=== PATIENT | male | born 1970 | race Caucasian/White ===

== ENCOUNTER 2021-12-25 13:55 | Inpatient (IN) | payer MEDICAID ==
[~2021-12-25] VITALS: Ht 180.3 cm; Wt 103.9 kg
[~2021-12-25 13:55] MED LIST: DILT180C67 PO; HYDR-3919 PO; LIP20 PO; LOP600 PO
[2021-12-25 15:30] VITALS: BP_SYST 133
[2021-12-25] MEDS ORDERED: HYDROcodone/ACETAMIN 10-325 MG TAB PO ONE (15:30)
[2021-12-25] MEDS ORDERED: IBUPROFEN 600 MG TABLET PO ONE (16:00)
[2021-12-25 17:17] LABS: BASOPHILS % (AUTO) 0.4 % (0.0-2.0); EOSINOPHILS % (AUTO) 0.6 % (0.0-4.0); HEMATOCRIT 30.9 % (36-54); HEMOGLOBIN 10.8 g/dL (14.0-18.0); LYMPHOCYTES # (AUTO) 1.2 K/uL (1.0-5.5); LYMPHOCYTES % (AUTO) 20.3 % (20.5-51.5); MEAN CORPUSCULAR HEMOGLOBIN 27 pg (27-31); MEAN CORPUSCULAR HGB CONC 35 % (32-36); MEAN CORPUSCULAR VOLUME 78 fL (79.0-98.0); MONOCYTES # (AUTO) 0.8 K/uL (0.0-1.0); MONOCYTES % (AUTO) 13.4 % (1.7-9.3); NEUTROPHILS # (AUTO) 3.8 K/uL (1.8-7.7); NEUTROPHILS % (AUTO) 65.3 % (40.0-70.0); PLATELET COUNT (AUTO) 198 K/uL (130-430); RED BLOOD CELL COUNT(AUTO) 3.95 MIL/uL (4.2-6.2); RED CELL DISTRIBUTION WIDTH 12.9 % (9.0-15.0); WHITE BLOOD COUNT (AUTO) 5.9 K/uL (4.8-10.8)
[2021-12-25 17:54] LABS: POTASSIUM 4.2 mmol/L (3.5-5.1)
[2021-12-25 17:55] LABS: CALCIUM 8.8 mg/dL (8.4-11.0); CREATININE 1.41 mg/dL (0.55-1.30); TOTAL BILIRUBIN 0.7 mg/dL (0.0-1.0)
[2021-12-25] MEDS ORDERED: VANCOMYCIN HCL 1,000 MG in NS 250 ML IV ONE (19:15)
[2021-12-25] MEDS ORDERED: NACL 0.9% 1,000 ML IV ONE ×2 (21:00→23:45)
[2021-12-25] MEDS ORDERED: KETOROLAC TROMETHAMINE 15 MG VIAL IVP ONE (21:15)
[2021-12-25] MEDS ORDERED: VANCOMYCIN HCL 1000 MG/VIAL IV ONE (21:22)
[2021-12-25] MEDS ORDERED: GABA800T PO (23:18)
[2021-12-25] MEDS ORDERED: LIP10 PO (23:18)
[2021-12-25] MEDS ORDERED: VALS80TA2 PO (23:18)
[2021-12-25] MEDS ORDERED: HYDR-3610 PO (23:18)
[2021-12-25] MEDS ORDERED: METF-518 PO (23:18)
[2021-12-25] MEDS ORDERED: INSULIN REGULAR, HUMAN 100 UNITS/ML, 10 ML VIAL (humuLIN R) SUBCUT PRN (23:45)
[2021-12-25] MEDS: GABAPENTIN 300 MG CAPSULE PO SCH (23:45)
[2021-12-26 01:20] VITALS: BP_SYST 111
[2021-12-26 01:32] VITALS: BP_SYST 111
[2021-12-26] MEDS: HYDROcodone/ACETAMIN 5-325 MG TAB (NORCO/ VICODIN) PO PRN ×3 (02:49→20:27)
[2021-12-26 07:55] VITALS: BP_SYST 124
[2021-12-26] MEDS ORDERED: DOCUSATE SODIUM 100 MG CAPSULE PO PRN (09:15)
[2021-12-26] MEDS ORDERED: MAGNESIUM SULFATE 50 ML IV PRN (09:15)
[2021-12-26] MEDS ORDERED: LORazepam 2 MG/ML VIAL IVP PRN (09:15)
[2021-12-26] MEDS ORDERED: ACETAMINOPHEN 325 MG TABLET PO PRN ×2 (09:15→11:45)
[2021-12-26] MEDS ORDERED: NALOXONE HCL 0.4 MG/ML AMP (NARCAN) IVP PRN ×2 (09:15)
[2021-12-26] MEDS ORDERED: ONDANSETRON HCL 4 MG/2 ML VIAL IVP PRN (09:15)
[2021-12-26] MEDS ORDERED: DEXTROSE 50% JECT 50 ML DISP.SYRIN IVP PRN (09:15)
[2021-12-26] MEDS ORDERED: MUPIROCIN 2% TOPICAL OINTMENT 22 GM NS PRN (09:15)
[2021-12-26] MEDS ORDERED: ZOLPIDEM TARTRATE 5 MG TABLET PO PRN (09:15)
[2021-12-26] MEDS ORDERED: MORPHINE 2 MG/ML INJ. SYRINGE IVP PRN (09:15)
[2021-12-26] MEDS ORDERED: POTASSIUM CHLORIDE 20 MEQ TAB.PRT.SR PO PRN (09:15)
[2021-12-26] MEDS: GABAPENTIN 300 MG CAPSULE PO SCH ×3 (09:43→20:27)
[2021-12-26] MEDS: VANCOMYCIN HCL 1,250 MG in NS 250 ML IV SCH ×2 (09:44→20:30)
[2021-12-26 12:00] VITALS: BP_SYST 128
[2021-12-26] MEDS: INSULIN LISPRO SLIDING SCALE 100 UNITS/ML VIAL (humaLOG) SUBCUT PRN ×2 (12:00→21:45)
[2021-12-26] MEDS: NACL 0.9% 1,000 ML IV SCH (12:02)
[2021-12-26] MEDS: MORPHINE 2 MG/ML INJ. SYRINGE IVP PRN ×3 (12:52→21:44)
[2021-12-26 14:24] LABS: BARBITURATE, URINE NEGATIVE (NEG <=200); BENZODIAZEPINE, URINE NEGATIVE (NEG <=150); CANNABINOID, URINE NEGATIVE (NEG <=50); COCAINE, URINE NEGATIVE (NEG <=150); METHAMPHETAMINES SCREEN,URINE NEGATIVE (NEG <=500); OPIATE, URINE POSITIVE (NEG <=100); PHENCYCLIDINE SCREEN,URINE NEGATIVE (NEG <=25); UR TRICYCLIC ANTIDEPRESSANTS NEGATIVE (NEG <=300); URINE AMPHETAMINE NEGATIVE (NEG <=500); URINE METHADONE NEGATIVE (NEG <=200); URINE OXYCODONE SCREEN NEGATIVE (NEG <=100); URINE PROPOXYPHENE SCREEN NEGATIVE (NEG <=300)
[2021-12-26] MEDS ORDERED: GABAPENTIN 400 MG CAPSULE PO SCH (15:00)
[2021-12-26 16:00] VITALS: BP_SYST 121
[2021-12-26 20:10] VITALS: BP_SYST 119
[2021-12-26] MEDS: HEPARIN SODIUM,PORCINE 5,000 UNITS/ML VIAL SUBCUT SCH (20:29)
[2021-12-26] MEDS ORDERED: DILTIAZEM HCL 180 MG CAP.SR.24H PO SCH (21:00)
[2021-12-26] MEDS ORDERED: GEMFIBROZIL 600 MG TABLET (LOPID) PO SCH (21:00)
[2021-12-27] MEDS: MORPHINE 2 MG/ML INJ. SYRINGE IVP PRN ×5 (02:07→20:41)
[2021-12-27] MEDS: NACL 0.9% 1,000 ML IV SCH ×3 (02:08→15:40)
[2021-12-27 05:44] VITALS: BP_SYST 117
[2021-12-27] MEDS: INSULIN LISPRO SLIDING SCALE 100 UNITS/ML VIAL (humaLOG) SUBCUT PRN ×2 (06:07→12:04)
[2021-12-27 07:33] LABS: CALCIUM 8.2 mg/dL (8.4-11.0); CREATININE 0.76 mg/dL (0.55-1.30); POTASSIUM 4.2 mmol/L (3.5-5.1)
[2021-12-27 07:50] VITALS: BP_SYST 125
[2021-12-27 07:53] LABS: BASOPHILS % (AUTO) 0.3 % (0.0-2.0); EOSINOPHILS # (AUTO) 0.1 K/uL (0.0-0.4); EOSINOPHILS % (AUTO) 2.7 % (0.0-4.0); HEMATOCRIT 26.6 % (36-54); HEMOGLOBIN 9.5 g/dL (14.0-18.0); LYMPHOCYTES # (AUTO) 1.2 K/uL (1.0-5.5); LYMPHOCYTES % (AUTO) 30.2 % (20.5-51.5); MEAN CORPUSCULAR HEMOGLOBIN 28 pg (27-31); MEAN CORPUSCULAR HGB CONC 36 % (32-36); MEAN CORPUSCULAR VOLUME 77 fL (79.0-98.0); MONOCYTES # (AUTO) 0.6 K/uL (0.0-1.0); MONOCYTES % (AUTO) 13.7 % (1.7-9.3); NEUTROPHILS # (AUTO) 2.2 K/uL (1.8-7.7); NEUTROPHILS % (AUTO) 53.1 % (40.0-70.0); PLATELET COUNT (AUTO) 157 K/uL (130-430); RED BLOOD CELL COUNT(AUTO) 3.44 MIL/uL (4.2-6.2); RED CELL DISTRIBUTION WIDTH 12.7 % (9.0-15.0)
[2021-12-27 08:15] LABS: WHITE BLOOD COUNT (AUTO) 4.1 K/uL (4.8-10.8)
[2021-12-27] MEDS: GABAPENTIN 300 MG CAPSULE PO SCH ×3 (08:54→20:41)
[2021-12-27] MEDS: ATORVASTATIN 20 MG TABLET PO SCH (08:54)
[2021-12-27] MEDS: CEFEPIME 2 GM in D5W 100 ML IV SCH ×2 (08:54→20:40)
[2021-12-27] MEDS: VANCOMYCIN HCL 1,250 MG in NS 250 ML IV SCH ×2 (08:55→21:59)
[2021-12-27] MEDS: HEPARIN SODIUM,PORCINE 5,000 UNITS/ML VIAL SUBCUT SCH ×2 (08:57→21:00)
[2021-12-27 12:05] VITALS: BP_SYST 122
[2021-12-27] MEDS: HYDROcodone/ACETAMIN 5-325 MG TAB (NORCO/ VICODIN) PO PRN ×2 (15:39→23:42)
[2021-12-27 16:05] VITALS: BP_SYST 127
[2021-12-28] MEDS: NACL 0.9% 1,000 ML IV SCH (01:15)
[2021-12-28 06:37] LABS: BASOPHILS % (AUTO) 0.5 % (0.0-2.0); EOSINOPHILS # (AUTO) 0.1 K/uL (0.0-0.4); EOSINOPHILS % (AUTO) 3.2 % (0.0-4.0); HEMATOCRIT 27.5 % (36-54); HEMOGLOBIN 9.9 g/dL (14.0-18.0); LYMPHOCYTES # (AUTO) 1.1 K/uL (1.0-5.5); LYMPHOCYTES % (AUTO) 26.3 % (20.5-51.5); MEAN CORPUSCULAR HEMOGLOBIN 27 pg (27-31); MEAN CORPUSCULAR HGB CONC 36 % (32-36); MEAN CORPUSCULAR VOLUME 76 fL (79.0-98.0); MONOCYTES # (AUTO) 0.4 K/uL (0.0-1.0); MONOCYTES % (AUTO) 10.4 % (1.7-9.3); NEUTROPHILS # (AUTO) 2.5 K/uL (1.8-7.7); NEUTROPHILS % (AUTO) 59.6 % (40.0-70.0); PLATELET COUNT (AUTO) 171 K/uL (130-430); RED BLOOD CELL COUNT(AUTO) 3.61 MIL/uL (4.2-6.2); RED CELL DISTRIBUTION WIDTH 12.8 % (9.0-15.0); WHITE BLOOD COUNT (AUTO) 4.2 K/uL (4.8-10.8)
[2021-12-28 08:00] VITALS: BP_SYST 148
[2021-12-28] MEDS ORDERED: GABAPENTIN 300 MG CAPSULE PO SCH ×2 (08:00→09:00)
[2021-12-28 08:17] LABS: CALCIUM 8.4 mg/dL (8.4-11.0); CREATININE 0.83 mg/dL (0.55-1.30); POTASSIUM 4.3 mmol/L (3.5-5.1)
[2021-12-28] MEDS: HEPARIN SODIUM,PORCINE 5,000 UNITS/ML VIAL SUBCUT SCH ×2 (08:28→21:00)
[2021-12-28] MEDS: GABAPENTIN 300 MG CAPSULE PO SCH ×3 (08:29→22:00)
[2021-12-28] MEDS: ATORVASTATIN 20 MG TABLET PO SCH (08:29)
[2021-12-28] MEDS: HYDROcodone/ACETAMIN 5-325 MG TAB (NORCO/ VICODIN) PO PRN (08:30)
[2021-12-28] MEDS: VANCOMYCIN HCL 1,250 MG in NS 250 ML IV SCH ×2 (09:00→23:09)
[2021-12-28] MEDS: CEFEPIME 2 GM in D5W 100 ML IV SCH ×2 (09:29→21:59)
[2021-12-28 12:00] VITALS: BP_SYST 125
[2021-12-28] MEDS: MORPHINE 2 MG/ML INJ. SYRINGE IVP PRN ×3 (13:34→21:59)
[2021-12-28 16:00] VITALS: BP_SYST 122
[2021-12-29] MEDS: MORPHINE 2 MG/ML INJ. SYRINGE IVP PRN ×3 (06:08→22:01)
[2021-12-29 08:00] VITALS: BP_SYST 114
[2021-12-29 08:37] LABS: BASOPHILS % (AUTO) 0.7 % (0.0-2.0); EOSINOPHILS # (AUTO) 0.1 K/uL (0.0-0.4); EOSINOPHILS % (AUTO) 2.7 % (0.0-4.0); HEMOGLOBIN 10.9 g/dL (14.0-18.0); LYMPHOCYTES # (AUTO) 1.3 K/uL (1.0-5.5); LYMPHOCYTES % (AUTO) 27.1 % (20.5-51.5); MEAN CORPUSCULAR HEMOGLOBIN 27 pg (27-31); MEAN CORPUSCULAR HGB CONC 35 % (32-36); MEAN CORPUSCULAR VOLUME 78 fL (79.0-98.0); MONOCYTES # (AUTO) 0.4 K/uL (0.0-1.0); MONOCYTES % (AUTO) 8.7 % (1.7-9.3); NEUTROPHILS % (AUTO) 60.8 % (40.0-70.0); PLATELET COUNT (AUTO) 235 K/uL (130-430); RED BLOOD CELL COUNT(AUTO) 3.98 MIL/uL (4.2-6.2); RED CELL DISTRIBUTION WIDTH 12.9 % (9.0-15.0); WHITE BLOOD COUNT (AUTO) 4.9 K/uL (4.8-10.8)
[2021-12-29] MEDS: CEFEPIME 2 GM in D5W 100 ML IV SCH ×2 (09:37→21:18)
[2021-12-29] MEDS: GABAPENTIN 300 MG CAPSULE PO SCH ×3 (09:38→21:17)
[2021-12-29] MEDS: ATORVASTATIN 20 MG TABLET PO SCH (09:38)
[2021-12-29] MEDS: HYDROcodone/ACETAMIN 5-325 MG TAB (NORCO/ VICODIN) PO PRN (09:38)
[2021-12-29] MEDS: HEPARIN SODIUM,PORCINE 5,000 UNITS/ML VIAL SUBCUT SCH ×2 (09:40→21:31)
[2021-12-29 10:11] LABS: CALCIUM 9.3 mg/dL (8.4-11.0); CREATININE 0.8 mg/dL (0.55-1.30); POTASSIUM 4.4 mmol/L (3.5-5.1)
[2021-12-29] MEDS: VANCOMYCIN HCL 1,250 MG in NS 250 ML IV SCH ×2 (11:04→21:19)
[2021-12-29 12:00] VITALS: BP_SYST 119
[2021-12-29] MEDS: INSULIN LISPRO SLIDING SCALE 100 UNITS/ML VIAL (humaLOG) SUBCUT PRN ×2 (12:53→21:37)
[2021-12-29 16:00] VITALS: BP_SYST 115
[2021-12-29 20:00] VITALS: BP_SYST 127
[2021-12-30] VITALS: BP_SYST 113
[2021-12-30 04:00] VITALS: BP_SYST 116
[2021-12-30] MEDS: MORPHINE 2 MG/ML INJ. SYRINGE IVP PRN ×4 (05:13→21:48)
[2021-12-30 07:19] LABS: BASOPHILS % (AUTO) 0.4 % (0.0-2.0); EOSINOPHILS # (AUTO) 0.1 K/uL (0.0-0.4); EOSINOPHILS % (AUTO) 2.4 % (0.0-4.0); HEMATOCRIT 30.2 % (36-54); HEMOGLOBIN 10.6 g/dL (14.0-18.0); LYMPHOCYTES # (AUTO) 1.3 K/uL (1.0-5.5); LYMPHOCYTES % (AUTO) 23.9 % (20.5-51.5); MEAN CORPUSCULAR HEMOGLOBIN 27 pg (27-31); MEAN CORPUSCULAR HGB CONC 35 % (32-36); MEAN CORPUSCULAR VOLUME 78 fL (79.0-98.0); MONOCYTES # (AUTO) 0.5 K/uL (0.0-1.0); MONOCYTES % (AUTO) 8.8 % (1.7-9.3); NEUTROPHILS # (AUTO) 3.6 K/uL (1.8-7.7); NEUTROPHILS % (AUTO) 64.5 % (40.0-70.0); PLATELET COUNT (AUTO) 249 K/uL (130-430); RED BLOOD CELL COUNT(AUTO) 3.89 MIL/uL (4.2-6.2); RED CELL DISTRIBUTION WIDTH 12.8 % (9.0-15.0); WHITE BLOOD COUNT (AUTO) 5.5 K/uL (4.8-10.8)
[2021-12-30 07:29] LABS: CALCIUM 8.9 mg/dL (8.4-11.0); CREATININE 0.8 mg/dL (0.55-1.30); POTASSIUM 4.1 mmol/L (3.5-5.1)
[2021-12-30 08:00] VITALS: BP_SYST 123
[2021-12-30] MEDS: ATORVASTATIN 20 MG TABLET PO SCH (08:38)
[2021-12-30] MEDS: GABAPENTIN 300 MG CAPSULE PO SCH ×3 (08:38→21:50)
[2021-12-30] MEDS: HYDROcodone/ACETAMIN 5-325 MG TAB (NORCO/ VICODIN) PO PRN ×2 (08:39→23:06)
[2021-12-30] MEDS: HEPARIN SODIUM,PORCINE 5,000 UNITS/ML VIAL SUBCUT SCH ×2 (08:44→22:04)
[2021-12-30] MEDS: CEFEPIME 2 GM in D5W 100 ML IV SCH ×2 (09:24→21:49)
[2021-12-30] MEDS: VANCOMYCIN HCL 1,250 MG in NS 250 ML IV SCH ×2 (10:15→21:50)
[2021-12-30 12:00] VITALS: BP_SYST 132
[2021-12-30 16:00] VITALS: BP_SYST 139
[2021-12-30 20:00] VITALS: BP_SYST 126
[2021-12-31] VITALS: BP_SYST 111
[2021-12-31] MEDS: MORPHINE 2 MG/ML INJ. SYRINGE IVP PRN ×2 (03:57→20:34)
[2021-12-31 06:56] LABS: BASOPHILS % (AUTO) 0.8 % (0.0-2.0); EOSINOPHILS # (AUTO) 0.2 K/uL (0.0-0.4); EOSINOPHILS % (AUTO) 3.4 % (0.0-4.0); HEMATOCRIT 29.8 % (36-54); HEMOGLOBIN 10.4 g/dL (14.0-18.0); LYMPHOCYTES # (AUTO) 1.7 K/uL (1.0-5.5); LYMPHOCYTES % (AUTO) 29.1 % (20.5-51.5); MEAN CORPUSCULAR HEMOGLOBIN 27 pg (27-31); MEAN CORPUSCULAR HGB CONC 35 % (32-36); MEAN CORPUSCULAR VOLUME 77 fL (79.0-98.0); MONOCYTES # (AUTO) 0.6 K/uL (0.0-1.0); MONOCYTES % (AUTO) 10.2 % (1.7-9.3); NEUTROPHILS # (AUTO) 3.2 K/uL (1.8-7.7); NEUTROPHILS % (AUTO) 56.5 % (40.0-70.0); PLATELET COUNT (AUTO) 265 K/uL (130-430); RED BLOOD CELL COUNT(AUTO) 3.86 MIL/uL (4.2-6.2); RED CELL DISTRIBUTION WIDTH 12.7 % (9.0-15.0); WHITE BLOOD COUNT (AUTO) 5.7 K/uL (4.8-10.8)
[2021-12-31 07:50] LABS: CALCIUM 8.7 mg/dL (8.4-11.0); CREATININE 0.79 mg/dL (0.55-1.30); POTASSIUM 4.3 mmol/L (3.5-5.1)
[2021-12-31 08:00] VITALS: BP_SYST 134
[2021-12-31] MEDS: ATORVASTATIN 20 MG TABLET PO SCH (08:27)
[2021-12-31] MEDS: GABAPENTIN 300 MG CAPSULE PO SCH ×3 (08:27→20:25)
[2021-12-31] MEDS: HEPARIN SODIUM,PORCINE 5,000 UNITS/ML VIAL SUBCUT SCH ×2 (08:29→20:33)
[2021-12-31] MEDS: CEFEPIME 2 GM in D5W 100 ML IV SCH ×2 (08:29→20:27)
[2021-12-31] MEDS: VANCOMYCIN HCL 1,250 MG in NS 250 ML IV SCH ×2 (08:42→20:26)
[2021-12-31] MEDS: HYDROcodone/ACETAMIN 5-325 MG TAB (NORCO/ VICODIN) PO PRN ×2 (08:56→16:47)
[2021-12-31 12:00] VITALS: BP_SYST 129
[2021-12-31] MEDS: INSULIN LISPRO SLIDING SCALE 100 UNITS/ML VIAL (humaLOG) SUBCUT PRN (12:04)
[2021-12-31 16:00] VITALS: BP_SYST 147
[2021-12-31 20:00] VITALS: BP_SYST 133
[2022-01-01] VITALS: BP_SYST 123
[2022-01-01] MEDS: HYDROcodone/ACETAMIN 5-325 MG TAB (NORCO/ VICODIN) PO PRN (00:22)
[2022-01-01] MEDS: INSULIN LISPRO SLIDING SCALE 100 UNITS/ML VIAL (humaLOG) SUBCUT PRN ×2 (00:48→07:12)
[2022-01-01 08:00] VITALS: BP_SYST 137
[2022-01-01] MEDS: VANCOMYCIN HCL 1,250 MG in NS 250 ML IV SCH ×2 (08:31→09:11)
[2022-01-01] MEDS: CEFEPIME 2 GM in D5W 100 ML IV SCH ×2 (08:31→09:12)
[2022-01-01] MEDS: GABAPENTIN 300 MG CAPSULE PO SCH ×3 (08:32→21:21)
[2022-01-01] MEDS: HEPARIN SODIUM,PORCINE 5,000 UNITS/ML VIAL SUBCUT SCH ×2 (08:35→21:23)
[2022-01-01] MEDS: ATORVASTATIN 20 MG TABLET PO SCH (08:35)
[2022-01-01 08:45] LABS: BASOPHILS % (AUTO) 0.9 % (0.0-2.0); EOSINOPHILS # (AUTO) 0.2 K/uL (0.0-0.4); EOSINOPHILS % (AUTO) 3.4 % (0.0-4.0); HEMATOCRIT 31.6 % (36-54); HEMOGLOBIN 10.9 g/dL (14.0-18.0); LYMPHOCYTES # (AUTO) 1.6 K/uL (1.0-5.5); LYMPHOCYTES % (AUTO) 30.9 % (20.5-51.5); MEAN CORPUSCULAR HEMOGLOBIN 27 pg (27-31); MEAN CORPUSCULAR HGB CONC 35 % (32-36); MEAN CORPUSCULAR VOLUME 78 fL (79.0-98.0); MONOCYTES # (AUTO) 0.3 K/uL (0.0-1.0); MONOCYTES % (AUTO) 6.5 % (1.7-9.3); NEUTROPHILS # (AUTO) 3.1 K/uL (1.8-7.7); NEUTROPHILS % (AUTO) 58.3 % (40.0-70.0); PLATELET COUNT (AUTO) 278 K/uL (130-430); RED BLOOD CELL COUNT(AUTO) 4.04 MIL/uL (4.2-6.2); WHITE BLOOD COUNT (AUTO) 5.3 K/uL (4.8-10.8)
[2022-01-01 09:36] LABS: CALCIUM 8.3 mg/dL (8.4-11.0); CREATININE 0.79 mg/dL (0.55-1.30); POTASSIUM 4.5 mmol/L (3.5-5.1)
[2022-01-01] MEDS: MORPHINE 2 MG/ML INJ. SYRINGE IVP PRN ×2 (11:21→16:07)
[2022-01-01 20:00] VITALS: BP_SYST 121
[2022-01-02] VITALS: BP_SYST 126
[2022-01-02 04:00] VITALS: BP_SYST 127
[2022-01-02 08:00] VITALS: BP_SYST 128
[2022-01-02 08:13] LABS: BASOPHILS # (AUTO) 0.1 K/uL (0.0-0.2); BASOPHILS % (AUTO) 1.1 % (0.0-2.0); EOSINOPHILS # (AUTO) 0.1 K/uL (0.0-0.4); EOSINOPHILS % (AUTO) 2.7 % (0.0-4.0); HEMATOCRIT 32.7 % (36-54); HEMOGLOBIN 11.1 g/dL (14.0-18.0); LYMPHOCYTES # (AUTO) 1.8 K/uL (1.0-5.5); LYMPHOCYTES % (AUTO) 35.3 % (20.5-51.5); MEAN CORPUSCULAR HEMOGLOBIN 27 pg (27-31); MEAN CORPUSCULAR HGB CONC 34 % (32-36); MEAN CORPUSCULAR VOLUME 78 fL (79.0-98.0); MONOCYTES # (AUTO) 0.4 K/uL (0.0-1.0); NEUTROPHILS # (AUTO) 2.8 K/uL (1.8-7.7); NEUTROPHILS % (AUTO) 53.9 % (40.0-70.0); PLATELET COUNT (AUTO) 308 K/uL (130-430); RED BLOOD CELL COUNT(AUTO) 4.17 MIL/uL (4.2-6.2); RED CELL DISTRIBUTION WIDTH 12.8 % (9.0-15.0); WHITE BLOOD COUNT (AUTO) 5.2 K/uL (4.8-10.8)
[2022-01-02 08:39] LABS: CALCIUM 9.2 mg/dL (8.4-11.0); CREATININE 0.79 mg/dL (0.55-1.30); POTASSIUM 4.5 mmol/L (3.5-5.1)
[2022-01-02] MEDS: CEFEPIME 2 GM in D5W 100 ML IV SCH ×2 (09:05→21:03)
[2022-01-02] MEDS: GABAPENTIN 300 MG CAPSULE PO SCH ×3 (09:06→21:04)
[2022-01-02] MEDS: ATORVASTATIN 20 MG TABLET PO SCH (09:06)
[2022-01-02] MEDS: HEPARIN SODIUM,PORCINE 5,000 UNITS/ML VIAL SUBCUT SCH ×2 (09:07→21:00)
[2022-01-02] MEDS: MORPHINE 2 MG/ML INJ. SYRINGE IVP PRN ×3 (09:18→21:02)
[2022-01-02] MEDS: HYDROcodone/ACETAMIN 5-325 MG TAB (NORCO/ VICODIN) PO PRN (11:02)
[2022-01-02 12:00] VITALS: BP_SYST 136
[2022-01-02 12:00] LABS: PROTHROMBIN TIME 10.3 SECS (9.5-12.5)
[2022-01-02] MEDS: INSULIN LISPRO SLIDING SCALE 100 UNITS/ML VIAL (humaLOG) SUBCUT PRN ×2 (12:06→21:17)
[2022-01-02 16:00] VITALS: BP_SYST 144
[2022-01-02 21:08] VITALS: BP_SYST 142
[2022-01-02] MEDS: VANCOMYCIN HCL 1,500 MG in NS 250 ML IV SCH (22:28)
[2022-01-03 02:15] VITALS: BP_SYST 145
[2022-01-03] MEDS: MORPHINE 2 MG/ML INJ. SYRINGE IVP PRN ×2 (04:44→10:28)
[2022-01-03] MEDS: INSULIN LISPRO SLIDING SCALE 100 UNITS/ML VIAL (humaLOG) SUBCUT PRN (06:21)
[2022-01-03] MEDS ORDERED: VANC1.5P10 IV (07:41)
[2022-01-03] MEDS ORDERED: LEVO500T90 PO (07:43)
[2022-01-03 08:00] VITALS: BP_SYST 127
[2022-01-03 08:11] LABS: BASOPHILS % (AUTO) 0.4 % (0.0-2.0); EOSINOPHILS # (AUTO) 0.1 K/uL (0.0-0.4); EOSINOPHILS % (AUTO) 2.5 % (0.0-4.0); HEMATOCRIT 29.2 % (36-54); HEMOGLOBIN 10.3 g/dL (14.0-18.0); LYMPHOCYTES % (AUTO) 36.1 % (20.5-51.5); MEAN CORPUSCULAR HEMOGLOBIN 27 pg (27-31); MEAN CORPUSCULAR HGB CONC 35 % (32-36); MEAN CORPUSCULAR VOLUME 77 fL (79.0-98.0); MONOCYTES # (AUTO) 0.4 K/uL (0.0-1.0); MONOCYTES % (AUTO) 7.6 % (1.7-9.3); NEUTROPHILS # (AUTO) 2.9 K/uL (1.8-7.7); NEUTROPHILS % (AUTO) 53.4 % (40.0-70.0); PLATELET COUNT (AUTO) 285 K/uL (130-430); RED BLOOD CELL COUNT(AUTO) 3.77 MIL/uL (4.2-6.2); RED CELL DISTRIBUTION WIDTH 12.8 % (9.0-15.0); WHITE BLOOD COUNT (AUTO) 5.5 K/uL (4.8-10.8)
[2022-01-03 08:29] LABS: CALCIUM 8.8 mg/dL (8.4-11.0); CREATININE 0.79 mg/dL (0.55-1.30); POTASSIUM 4.4 mmol/L (3.5-5.1)
[2022-01-03] MEDS: CEFEPIME 2 GM in D5W 100 ML IV SCH (08:43)
[2022-01-03] MEDS: GABAPENTIN 300 MG CAPSULE PO SCH (08:43)
[2022-01-03] MEDS: ATORVASTATIN 20 MG TABLET PO SCH (08:43)
[2022-01-03] MEDS: VANCOMYCIN HCL 1,500 MG in NS 250 ML IV SCH (08:43)
[2022-01-03] MEDS: HEPARIN SODIUM,PORCINE 5,000 UNITS/ML VIAL SUBCUT SCH (08:45)
[2022-01-03 12:00] VITALS: BP_SYST 137
== END 2022-01-03 17:30 | DRG 720 ==
LOC: SED 13:55 → SMU 23:31 → OBSVTOIN 12-27 11:01
PROVIDERS: ADMIT General Practice; ATTEND General Practice
DX: A41.9 Sepsis, unspecified organism (principal); N17.0 Acute kidney failure with tubular necrosis; E44.1 Mild protein-calorie malnutrition; L97.519 Non-pressure chronic ulcer of other part of right foot with unspecified severity; E87.1 Hypo-osmolality and hyponatremia; D63.8 Anemia in other chronic diseases classified elsewhere; L97.529 Non-pressure chronic ulcer of other part of left foot with unspecified severity; E11.621 Type 2 diabetes mellitus with foot ulcer; E11.65 Type 2 diabetes mellitus with hyperglycemia; M86.9 Osteomyelitis, unspecified; I48.91 Unspecified atrial fibrillation; E78.5 Hyperlipidemia, unspecified; L03.115 Cellulitis of right lower limb; L03.116 Cellulitis of left lower limb; E11.51 Type 2 diabetes mellitus with diabetic peripheral angiopathy without gangrene; Z20.822 Contact with and (suspected) exposure to COVID-19; E11.69 Type 2 diabetes mellitus with other specified complication; M86.8X7 Other osteomyelitis, ankle and foot; I10 Essential (primary) hypertension; Z89.421 Acquired absence of other right toe(s); Z68.31 Body mass index [BMI] 31.0-31.9, adult
CPT/HCPCS: 36415; 71045; 73720; 78315; 80048; 80053; 80202; 80307; 82962; 83036; 83605; 83735; 85025; 85610-TC; 85730-TC; 87040; 87070-TC; 87186-TC; 93923; 93970; A9503; G0378; J0692; J1644; J1885; J2270; J3370; J7050; J7060